=== PATIENT | female | born 1960 | race Caucasian/White ===

== ENCOUNTER 2020-06-03 11:49 | Emergency (ER) | payer SELFPAY ==
--- NOTE | 2020-06-03 13:31 | PC.NURSE ---
pt lwt at 1131, states that she did not want to wait any longer.
== END 2020-06-03 14:02 | disposition left against medical advice (07) ==
PROVIDERS: Emergency Provider Emergency Medicine; PCP Internal Medicine
DX: H57.13 Ocular pain, bilateral (principal)
CPT/HCPCS: 99281

== ENCOUNTER 2020-07-01 11:08 | Outpatient (REF) | payer BC, SELFPAY ==
[2020-07-01 12:27] LABS: Anion Gap 13 (12-20); Blood Urea Nitrogen 18 mg/dL (9-16); Carbon Dioxide 29 mmol/L (22-29); Chloride 103 mmol/L (96-108); Estimated Glomerular Filt Rate > 60; Glucose Random 92 mg/dL (60-115); Sodium 140 mmol/L (135-145)
== END 2020-07-01 11:09 | disposition home or self-care (01) ==
LOC: HO.LAB 11:08
PROVIDERS: PCP Internal Medicine; Visit Provider Physical Medicine & Rehabilitation
DX: Z01.812 Encounter for preprocedural laboratory examination (principal)
CPT/HCPCS: 80048

== ENCOUNTER 2020-07-12 08:47 | Outpatient (REF) | payer BC, SELFPAY ==
--- NOTE | 2020-07-12 08:50 | CT_ITS ---
EXAMINATION: CT PELVIS WITHOUT CONTRAST CT HIP WITHOUT CONTRAST, RIGHT CLINICAL INFORMATION: Sacroiliitis. COMPARISON: CT scan of the abdomen and pelvis November 2013 TECHNIQUE: CT scan of the pelvis was performed with reconstruction imaging performed at the acquisition workstation. CT scan of the right hip was performed with reconstruction imaging performed at the acquisition workstation. FINDINGS: Postsurgical changes related to right sacroiliac joint fusion. Two screw-shaped metallic implants pass through the sacroiliac joint both of which appear to contain bone graft continuously through the central portion of the implant. The sacroiliac joint otherwise appears lucent without additional areas of osseous bridging or osseous density within the joint. There is some gas within the articular portion of the sacroiliac joint which may reflect a vacuum phenomenon. There are no erosions. There is no joint space narrowing or marginal osteophytes. LEFT SACROILIAC JOINT: A smaller amount of gas present within the articular portion of the joint. No joint space narrowing or marginal osteophytes to suggest osteoarthritis. RIGHT HIP: See below. LEFT HIP: Normal. SYMPHYSIS PUBIS: Mild degenerative changes. In the partially visualized lumbosacral spine, there is advanced degenerative disc changes at L5-S1 with disc space narrowing, endplate osteophytes and gas within the disc space compatible with a vacuum disc phenomenon. This is unchanged compared to 2014. There is also advanced left facet arthrosis at L4-L5 likely at least slightly progressed compared to prior. MISCELLANEOUS: Calcific atherosclerotic changes of the distal aorta and branches, unchanged. Intrapelvic soft tissue structures are unremarkable. Fat-containing umbilical hernia measuring approximately 1.5 cm transverse, unchanged. RIGHT HIP: Femoroacetabular joint space is normal without degenerative change. Surrounding bone and soft tissues unremarkable other than calcific atherosclerotic disease CT/CT pelvis wo con IMPRESSION: Imaging of the pelvis and right hip performed. Postsurgical changes related to orthopedic fusion procedure of the right sacroiliac joint. Although there does appear to be bone graft extending along the metallic implant, no osseous bridging along other areas of the right sacroiliac joint. The joint otherwise appears unremarkable. Left sacroiliac joint within normal limits. RIGHT HIP: Normal. Incidental note made of spondylosis of the partially visualized lumbosacral spine perhaps slightly progressed compared with 2014 with regard to the left L4-L5 facet.
== END 2020-07-12 08:48 | disposition home or self-care (01) ==
LOC: HO.CT 08:47
PROVIDERS: PCP Internal Medicine; Visit Provider Physical Medicine & Rehabilitation
DX: M46.1 Sacroiliitis, not elsewhere classified (principal)
CPT/HCPCS: 72192; 73700

== ENCOUNTER 2021-10-31 23:17 | Emergency (ER) | payer BC, SELFPAY ==
--- NOTE | ~2021-10-31 | XR_ITS ---
EXAMINATION: XR HAND, RIGHT CLINICAL INFORMATION: Foreign body, multiple splinters COMPARISON: None TECHNIQUE: PA, lateral, and oblique views of the right hand. FINDINGS: Osseous alignment is anatomic. No acute fracture is seen. No radiopaque foreign body identified. XR/XR hand RT min 3V IMPRESSION: No radiopaque foreign body identified.
[2021-10-31 23:37] VITALS: BP 159/98; PULSE 78; RESP 17; TEMP 36.8; O2SAT 98; BMI 32.9
--- NOTE | 2021-11-01 01:42 | ED_ITS ---
HPI - General Adult General Chief complaint: Extremity Problem Stated complaint: splinter stuck in hand, infection ? Time Seen by Provider: 11/01/21 01:17 Source: patient Mode of arrival: ambulatory Limitations: no limitations History of Present Illness HPI narrative: This is a 61-year-old female no significant medical history presenting to the emergency department with complaints of foreign body sensation to right hand between the 1st and 2nd digit X5 days. Patient tells me she was holding a banister with wood and she got splinter stuck in her hands. She tells me she removed a 2.5 inch piece of wood however she still feels like there is would in there. She has concern for infection. She denies numbness or tingling, fevers, chills. She does tell me she feels as though her hand is getting puffy, and painful to move. She is right-hand dominant. She tells me she has been trying to remove this herself by pushing it through. Onset (ago): day(s) (5) Location: right and upper extremity Radiation: non-radiation Severity: moderate Quality: constant Pain Consistency: constant Relieving factors: none Exacerbating factors: none Associated symptoms: denies other symptoms Related Data Previous Rx's Medication Instructions Recorded cephalexin 500 mg tablet 500 mg PO Q6H 10 Days #40 tab 11/01/21 doxycycline hyclate 100 mg capsule 100 mg PO BID 10 Days #20 cap 11/01/21 oxycodone 5 mg tablet 5 mg PO Q8H PRN #8 tab 11/01/21 Allergies Allergy/AdvReac Type Severity Reaction Status Date / Time Uoxzfvm-JGL-DgP Reductase Allergy Unknown UNKNOWN Verified 10/31/21 23:42 Inhibitor [HFDNLGJ-DGI-UUJ REDUCTASE INHIBITOR] From SEROQUEL Allergy Unknown DIZZINESS Uncoded 10/31/21 23:42 Review of Systems Review of Systems: Constitutional : No Weight loss, No Fever, No Chills, No Fatigue, No Malaise ENT/Mouth : No sore throat, No Rhinorrhea Eyes: No Eye Pain, No Swelling, No Redness Cardiovascular : No Chest Pain, No SOB, No Dyspnea on Exertion, No Orthopnea, No Edema, No Palpitations Respiratory : No Cough, No Sputum, No Wheezing Gastrointestinal : No Nausea, No Vomiting, No Diarrhea, No Constipation, No abdominal Pain, No Hematochezia, No Melena Genitourinary : No Dysuria, No Urinary Frequency, No Hematuria, Musculoskeletal : No joint pain, No Myalgias, No Joint Swelling Skin : No Skin Lesions, No rash Neuro : No Weakness, No Numbness, No Dizziness, No Headache Psych : No Anxiety/Panic, No Depression All other systems reviewed and are negative Yes all other systems are reviewed and are negative [facility] Past Medical History Attestation statement: The following information was validated with the patient. Source: old records reviewed and nursing notes reviewed Social History Social History Advance Directives: No Advance Directives Information Provided: Yes Physical Exam ED Vital Signs: Vital Signs - 24 hr 10/31/21 23:37 Temperature 98.3 F Pulse Rate 78 Respiratory Rate 17 Blood Pressure 159/98 H Pulse Oximetry 98 BMI result Body Mass Index 32.9 Vital signs stable. Appearance: Alert.? Oriented X3.? No acute distress.? Head: Normocephalic, atraumatic, no step-offs or deformities Eyes: Pupils equal, round and reactive to light.? ENT: Pharynx normal.? Neck: Normal inspection.? Neck supple.? CVS: Normal heart rate and rhythm.? Pulses normal.? Respiratory: No respiratory distress.? Breath sounds normal.? Abdomen: Soft and nontender.? Skin: Skin warm and dry.? Normal skin color.? Normal skin turgor.? Extremities: No lower extremity edema.? No calf ttp. 5/5 strength to bilateral upper and lower extremities + able to palpate a foreign body between the 2nd and 1st digits of the right hand and below the webspaces feels like a 2 cm long linear object appears superficial, with faint ecchymosis overlying it.. Right hand/digits appear swollen when compared to the left hand. No evident, erythema to hand itself. Bilateral extremities with 2+ pulses equal bilateral. Capillary refill to bilateral upper extremities/digits less than 2 seconds. Sensory and motor intact. No pain w/ ROM of wrist b/l. Back: No midline tenderness, no C-spine tenderness, full range of motion, no CVA tenderness bilaterally Neuro: Oriented X 3.? No motor deficit.? No sensory deficit. CN 2-12 intact Course Reevaluation(s) Reevaluation #1: X-ray with no evidence of foreign bodies however the foreign body is wood. Attempted to make a small incision (1cm) and remove it with tweezers. Initially it felt as though I felt the foreign body however afterwards it feels as though the foreign body moved deeper, only a small sliver of wood removed. Due to the area of the foreign body I will no longer attempt to remove it. Due to the depth of it is likely that this needs to be done by surgeon. Patient has intact sensory and motor, capillary refill and neurovascularly intact even after removal of foreign body. Called to the bedside to evaluate the patient. Who agrees this should be surgical. She recommends place patient in a volar splint. I will give patient information for surgery I will have her call on Wednesday morning. If she is unable to get in I will advise her to return to the emergency department. She will also be started on oral antibiotics. Time: 02:44 Reevaluation #2: One suture 5-0 was placed on the palm of the hand. Educated her that this sutures non dissolvable and should be removed in 7 days. Time: 03:00 Medical Decision Making [facility] Narrative Medical decision making narrative: 0117 61 yo female presents w/ foreign body (wood) in right hand. She reports some swelling and bruising. FB appeaers to be just under skin, appears to be linear. Upon physical exam able to palpate a foreign body between the 2nd and 1st digits of the right hand and below the webspaces feels like a 2 cm long linear object appears superficial, with faint ecchymosis overlying it.. Right hand/digits appear swollen when compared to the left hand. No evident, erythema to hand itself. Bilateral extremities with 2+ pulses equal bilateral. Capillary refill to bilateral upper extremities/digits less than 2 seconds. Sensory and motor intact. No pain w/ ROM of wrist b/l. Plan at this time is x-ray of right hand. Although foreign body may not be visualized as foreign body is wood. Medical Records Medical records reviewed: Yes I reviewed the patient's medical records. Lab Data Lab results reviewed: Yes I reviewed the patient's lab results. Critical Care Time Critical Care Time Critical Care Time: No Discharge Plan Discharge Clinical Impression: Foreign body (FB) in soft tissue Patient Disposition: Home, Self-Care Instructions: Soft Tissue Foreign Body (ED) Additional Instructions: Take your medications as prescribed. If you were prescribed antibiotics today, it is important that you take your medication to their entirety, do not skip any doses, do not finish them early. Follow-up with your primary care provider this week. Follow-up with hand surge on/general surgery first thing Wednesday morning. Or return to the emergency department on Wednesday. Return to the emergency department with new or worsening symptoms. Such as fevers, chills, chest pain, shortness of breath, nausea, vomiting, dizziness, headache, vision changes, lethargy In case of emergency call [address] to your right palm, this should be removed in 7 days. Prescriptions: New doxycycline hyclate 100 mg capsule 100 mg PO BID 10 Days Qty: 20 0RF cephalexin 500 mg tablet 500 mg PO Q6H 10 Days Qty: 40 0RF oxycodone 5 mg tablet 5 mg PO Q8H PRN (Reason: pain) Qty: 8 0RF Rx Instructions: Patient can partially filled prescription upon request. Referrals: Michael Jha MD [Primary Care Provider] - Valerio Villalobos MD [Physician] - 2 days Elvia Jenkins MD [Physician] - 2 days Stand Alone Forms: Work/School Release
[2021-11-01] MEDS: Lidocaine HCl 2 % MPF 5 ML VIAL SUBCUT ×2 (02:07→02:08)
[2021-11-01] MEDS: Diphth,Pertus(ACell),Tet Adult 0.5 ML SYRINGE IM (02:07)
--- NOTE | 2021-11-01 02:22 | PC.NURSE ---
PA at bedside lancing wound to retrieve FB. Pt medicated per SEP.
[2021-11-01] MEDS: cephALEXin 500 MG CAPSULE PO (03:31)
== END 2021-11-01 03:33 | disposition home or self-care (01) ==
PROVIDERS: Emergency Provider Emergency Medicine; PCP Internal Medicine
DX: M79.5 Residual foreign body in soft tissue (principal); M79.641 Pain in right hand
CPT/HCPCS: 20520; 29125; 73130; 90471; 90715; 99283; 99284

== ENCOUNTER → 2021-11-04 08:05 | Outpatient (BNVA) | payer BC, SELFPAY | PROVIDERS: PCP Internal Medicine; Visit Provider Physician Assistant | DX: Z13.89 Encounter for screening for other disorder (principal) ==

== ENCOUNTER 2021-11-06 12:29 | Day surgery (SDC) | payer BC, SELFPAY ==
[2021-11-06] VITALS (8 sets, daily range): BP systolic 118–139; BP diastolic 62–81; PULSE 71–83; RESP 16–18; TEMP 36.1–36.6; O2SAT 94–100; BMI 30.9
--- NOTE | 2021-11-06 12:40 | P.OP_ITS ---
Operative Note Operative Note Date of Service: 11/06/21 Narrative: Operative Note Narrative: Preop diagnosis: 1. Right hand foreign body Postop diagnosis: 1. Right hand wound, no foreign body found Procedure: 1. Right hand wound exploration and I and D Surgeon: Elvia Jenkins MD Anesthesia: General [plus regional block] Findings: No foreign body found. No evidence of infection. Implants: None Tourniquet time: 13 minutes EBL: 5.0 ml Specimen: None Drains: None Complications: None Disposition: Brought to the recovery room in stable condition Plan: Continue antibiotics. Follow-up in 7-10 days for wound check, suture removal Indications: The patient is a 61 year old woman with history of a a right hand wooden splinter in the palmar thenar aspect of her hand . . The risks and benefits of operative treatment, including but not limited to risk of damage to blood vessels, nerves, tendons, infection, recurrence, persistent pain or numbness, incomplete resolution of preoperative symptoms, or need for further surgery were discussed with the patient and they wished to proceed with surgery. She was met in preop hold and showed me where she felt the foreign body was in her hand, which was on the volar aspect of the 1st webspace. I sonia a line with anchor over where she felt the foreign body was. Procedure: Once consent was obtained patient was brought back to the operating suite and placed in the operating table in a supine position. . Perioperative antibiotics and anesthesia was administered by the anesthesia team. A tourniquet was applied to the proximal aspect of the right upper extremity and the limb was prepped and draped in a standard surgical fashion. The limb was elevated exsanguinated with Esmarch bandage and the tourniquet inflated to 250 mm of mercury for a total tourniquet time of 13 minutes. I made a gently curved incision in the volar aspect of her right 1st web space using a 15. Blade through the skin to the subcutaneous tissues. The incision measured approximately 2 cm in length. I then carefully dissected through the subcutaneous fat, looking for a possible foreign body. We got down to the fascial layer and I observed the neurovascular bundle extending to the radial aspect of the index finger and also the neurovascular bundle extending up towards the thumb. These were protected during the case. They did not appear to be any violation of the fascial layer. I gently explore the subcutaneous fat and also palpated in the subcutaneous fat on both sides of the in incision. I also palpated the muscle belly. I felt no evidence of foreign body. I saw no evidence of foreign body. There was also no evidence of infection. At this point the tourniquet was deflated and hemostasis obtained with a brief period of local pressure . The wound was copiously irrigated with normal salin e. The skin edges were reapproximated with 5-0 nylon suture. The wound was infiltrated with some 1% lidocaine with epinephrine for postop pain control and a sterile dressing was applied. The patient appears to have tolerated the procedure well and with no complications. All digits were well vascularized conclusion of the case.
--- NOTE | 2021-11-06 12:50 | HO.ANESPROP2 ---
[facility] Surgical History Surgical History Hx of hysterectomy S/P insertion of spinal cord stimulator History of Problems with Anesthesia: Yes (History of difficult intubation per pt) Social History Social History (Updated 11/06/21 @ 13:02 by Vanita Brooks MD) Use of substances other than those prescribed or required for medical reasons: Yes Substance Use Type: Marijuana Substance Use Frequency: Daily Advance Directives: No Advance Directives Information Provided: Yes Current occupational status: unemployed Meds Allergies Allergy/AdvReac Type Severity Reaction Status Date / Time Ojsenrz-WCM-PgY Reductase Allergy Unknown UNKNOWN Verified 10/31/21 23:42 Inhibitor [PFUCPDF-WJL-NXQ REDUCTASE INHIBITOR] From SEROQUEL Allergy Unknown DIZZINESS Uncoded 10/31/21 23:42 Home Medications Medication Instructions Recorded Confirmed Last Taken Type bupropion HCl 150 mg 24 hr tablet, 150 mg PO QAM 11/04/21 11/06/21 History extended release clonazepam 0.5 mg tablet 0.5 mg PO DAILY 11/04/21 Unknown History duloxetine 60 mg capsule,delayed 60 mg PO DAILY 11/04/21 11/06/21 History release (Cymbalta) ezetimibe 10 mg tablet (Zetia) 10 mg PO DAILY 11/04/21 11/06/21 History Exam Exam Date and Time: November 06, 2021 1250 Airway Mallampati Class: II TM Dist: >3cm Neck ROM: Full Loose/Missing/Broken Teeth: No Heart: RRR Lungs: CTA Assessment and Plan Assessment Anesthesia Assessment: Anesthesia Plan Discussed and Chart Reviewed Final Anesthetic Review History of Problems with Anesthesia: Yes (History of difficult intubation per pt) NPO: Yes ASA Class: II Patient Risk: Low Procedure Risk: Low Anesthetic Plan Anesthetic Plan: GA Disposition: Standard PACU
[2021-11-06] MEDS: Lactated Ringers 1,000 ML 50 ML IVCONT (13:08)
[2021-11-06] MEDS: Acetaminophen 325 MG TABLET 650 MG PO (14:55)
[2021-11-06] MEDS: oxyCODONE HCl Immed Release 5 MG TABLET PO (14:56)
[2021-11-06] MEDS: Ketorolac Tromethamine 15 MG/ML VIAL IVPUSH (14:57)
== END 2021-11-06 15:50 | disposition home or self-care (01) ==
PROVIDERS: PCP Internal Medicine; Visit Provider Orthopaedic Surgery
PROC: (CPT 10120; principal; 2021-11-06 13:00)
DX: M79.5 Residual foreign body in soft tissue (principal); M79.641 Pain in right hand
CPT/HCPCS: 10120; J0171; J1100; J1885; J2405; J3010

== ENCOUNTER → 2021-11-12 08:08 | Outpatient (BNVA) | payer BC, SELFPAY | PROVIDERS: Visit Provider Orthopaedic Surgery | DX: Z13.89 Encounter for screening for other disorder (principal) ==

== ENCOUNTER → 2021-11-18 09:19 | Outpatient (BNVA) | payer BC, SELFPAY | PROVIDERS: Visit Provider Orthopaedic Surgery | DX: Z13.89 Encounter for screening for other disorder (principal) ==

== ENCOUNTER 2022-11-22 11:04 | Emergency (ER) | payer BC, SELFPAY ==
--- NOTE | ~2022-11-22 | CT_ITS ---
EXAMINATION: CT ORBIT WITH CONTRAST CLINICAL INFORMATION: Right eye pain. COMPARISON: Head CT from 04/16/2020. TECHNIQUE: Multidetector CT imaging examination of the orbits is performed with intravenous administration of 85 mL Omnipaque 350. Axial images and multiplanar reformatted images are reviewed. This CT examination was performed using dose optimization techniques as appropriate, variously including the following: *Automated exposure control *Adjustment of mA and/or kV according to patient size (this includes techniques or standardized protocols for targeted exams where dose is matched to indication/reason for exam; i.e. extremities or head) *Use of iterative reconstruction technique DLP: 197 mGy-cm FINDINGS: The globes and orbital desouza, including lamina papyracea, are intact. The orbital apex, optic canals, and retrobulbar fat planes are normal. The extraocular muscles are normal. No imaging evidence of preseptal or postseptal inflammation. Superior ophthalmic veins are unremarkable. No radiopaque foreign body in either orbit. No lesions are seen in the cavernous sinus. The maxilla, mandible and temporomandibular joints are intact. Nasal bones, pterygoid plates and zygomatic arches are normal. The paranasal sinuses are well-aerated and the ostiomeatal units are patent. No air-fluid levels in the paranasal sinuses. The visualized soft tissues of the face are normal. No soft tissue abscess. The visualized portions of the parotid glands are normal. The partially visualized intracranial structures are normal. CT/CT orbit BI w IV con IMPRESSION: No acute orbital or periorbital pathology. No evidence of a preseptal or postseptal inflammatory process, soft tissue mass or paranasal sinus disease.
[2022-11-22 11:27] VITALS: BP 122/74; PULSE 91; RESP 18; TEMP 36.8; O2SAT 100; BMI 29.2
--- NOTE | 2022-11-22 11:32 | ED_ITS ---
HPI - General Adult General Chief complaint: Eye Problems Stated complaint: R eye pain Time Seen by Provider: 11/22/22 12:45 Related Data Home Medications Medication Instructions Recorded Confirmed bupropion HCl 150 mg 24 hr tablet, 150 mg PO QAM 11/04/21 extended release clonazepam 0.5 mg tablet 0.5 mg PO DAILY 11/04/21 duloxetine 60 mg capsule,delayed 60 mg PO DAILY 11/04/21 release (Cymbalta) ezetimibe 10 mg tablet (Zetia) 10 mg PO DAILY 11/04/21 Previous Rx's Medication Instructions Recorded cephalexin 500 mg tablet 500 mg PO Q6H 10 days #40 tabs 11/01/21 doxycycline hyclate 100 mg capsule 100 mg PO BID 10 days #20 caps 11/01/21 oxycodone 5 mg tablet 5 mg PO Q8H PRN pain #8 tabs 11/01/21 hydrocodone 5 mg-acetaminophen 325 1 tab PO Q4-6H PRN pain #7 tabs 11/06/21 mg tablet amoxicillin 875 mg-potassium 1 tab PO BID #14 tabs 11/22/22 clavulanate 125 mg tablet Allergies Allergy/AdvReac Type Severity Reaction Status Date / Time Txyvxxz-OJG-BkM Reductase Allergy Unknown UNKNOWN Verified 11/22/22 11:26 Inhibitor [SUVEQSZ-TPB-PFX REDUCTASE INHIBITOR] From SEROQUEL Allergy Unknown DIZZINESS Uncoded 11/12/21 08:19 [facility] Past Medical History Surgical History Hx of hysterectomy S/P insertion of spinal cord stimulator Social History Social History Patient Tobacco Use Status: Former Tobacco user Quit Date: 2006 Substance Use Type: Marijuana Advance Directives: No Advance Directives Information Provided: Yes Current occupational status: unemployed Physical Exam ED Vital Signs: Vital Signs - 24 hr 11/22/22 11:27 Temperature 98.3 F Pulse Rate 91 Respiratory Rate 18 Blood Pressure 122/74 Pulse Oximetry 100 Oxygen Delivery Method Room Air BMI result Body Mass Index 29.2 Course Course Course Narrative: RME: 62 yold female presents to the for right eye pain tingling and right facial tingling for the past 3 weeks. patient has no neuro deficits or new trauma. patient has been sen by two eye doctors in the past three weeks who can not explain symptoms. Patient came to the ED for evlauation. Medications Administered Discontinued Medications Generic Name Dose Route Start Last Admin Trade Name Katiana PRN Reason Stop Dose Admin Fluorescein Sodium 1 strip 11/22/22 13:00 11/22/22 15:11 Fluorescein Sodium Strip EYE-RIGHT 11/22/22 13:01 1 strip ONCE ONE Administration Iohexol 100 ml 11/22/22 15:26 11/22/22 15:26 Iohexol 350 Mg/Ml 100 Ml Infus..Btl IV 11/22/22 15:27 85 ml ONCE ONE Administration Ketorolac Tromethamine 30 mg 11/22/22 15:13 11/22/22 15:44 Ketorolac Tromethamine 30 Mg/Ml Vial IVPUSH 11/22/22 15:14 30 mg ONCE ONE Administration Tetracaine HCl 1 drop 11/22/22 13:00 11/22/22 15:11 Tetracaine Hcl/Pf 0.5% Oph Fátima 4 Ml Drops EYE-RIGHT 11/22/22 13:01 1 drop ONCE ONE Administration Medical Decision Making Lab Data 11/22/22 14:39 11/22/22 14:39 Labs: Lab Results 11/22/22 11/22/22 11/22/22 Range/Units 14:39 14:39 14:41 WBC 8.9 (4.8-10.8) X10*3/uL RBC 4.75 (4.20-5.50) X10*6/uL Hgb 14.5 (12.0-16.0) g/dl Hct 41.2 (37.0-47.0) % MCV 86.7 (80.0-98.0) fL MCH 30.5 (27.0-33.0) pg MCHC 35.2 H (31.0-35.0) g/dl RDW 13.5 (11.0-16.0) % Plt Count 306 (160-400) X10*3/uL MPV 9.4 (9.4-12.3) fL Immature Gran % (Auto) 0.7 H (0.0-0.4) % Neut % (Auto) 51.4 (45-73) % Lymph % (Auto) 36.8 (20-40) % Mcduffie % (Auto) 6.5 (2-11) % Eos % (Auto) 3.4 (0-4) % Baso % (Auto) 1.2 (0-2) % Lymph # (Auto) 3.3 (1.2-4.9) X10*3/uL Mcduffie # (Auto) 0.6 (0.1-1.2) X10*3/uL Eos # (Auto) 0.3 (0.0-0.4) X10*3/uL Baso # (Auto) 0.1 (0.0-0.2) X10*3/uL Abs Immat Gran (auto) 0.06 H (0.00-0.03) X10*3/uL Absolute Neuts (auto) 4.6 (2.0-8.3) x10*3/uL Absolute Nucleated RBC 0.000 (0.0-0.012) X10*3/uL Nucleated RBC % (auto) 0.0 (0.0-0.2) /100WBC ESR 7 (0-20) MM/HR Sodium 145 (135-145) mmol/L Potassium 3.9 (3.3-5.1) mmol/L Chloride 107 (96-108) mmol/L Carbon Dioxide 27 (22-29) mmol/L Anion Gap 15 (12-20) BUN 16 (9-16) mg/dL Creatinine 0.81 (0.5-1.4) mg/dL Estim Creat Clear Calc 72.3 Estimated GFR > 60 Random Glucose 106 (60-115) mg/dL Calcium 9.8 (8.4-10.2) mg/dL Magnesium 2.1 (1.6-2.6) mg/dL Total Bilirubin 0.5 (0.0-1.0) mg/dL Direct Bilirubin 0.1 (0.0-0.5) mg/dL AST 23 (5-31) U/L ALT 27 (0-31) U/L Alkaline Phosphatase 108 (39-117) U/L C-Reactive Protein 0.17 (< or = 0.50) mg/dL Total Protein 6.6 (6.5-8.0) g/dL Albumin 4.1 (3.5-5.0) g/dL Discharge Plan Discharge Clinical Impression: Acute eye pain Patient Disposition: Home, Self-Care Instructions: Eye Pain (ED) Additional Instructions: Please take full course of antibiotic as directed per [facility]'s recommendation It is unclear what is causing your eye pain but your workup today was unremarkable. Please follow-up with the [facility]. If any new or worsening symptoms occur please return for re-evaluation. Prescriptions: New amoxicillin-pot clavulanate 875-125 mg tablet 1 tab PO BID Qty: 14 0RF No Action doxycycline hyclate 100 mg capsule 100 mg PO BID 10 Days Qty: 20 0RF cephalexin 500 mg tablet 500 mg PO Q6H 10 Days Qty: 40 0RF oxycodone 5 mg tablet 5 mg PO Q8H PRN (Reason: pain) Qty: 8 0RF Rx Instructions: Patient can partially filled prescription upon request. hydrocodone-acetaminophen 5-325 mg tablet 1 tab PO Q4-6H PRN (Reason: pain) Qty: 7 0RF clonazepam 0.5 mg tablet 0.5 mg PO DAILY duloxetine [Cymbalta] 60 mg capsule,delayed release(DR/EC) 60 mg PO DAILY bupropion HCl 150 mg tablet extended release 24 hr 150 mg PO QAM ezetimibe [Zetia] 10 mg tablet 10 mg PO DAILY Interventions: ED Discharge Assessment Last Done: 11/22/22 17:37 Discharge Date/Time: 11/22/22 17:38
[2022-11-22 14:49] LABS: Basophils Absolute Auto 0.1 X10*3/uL (0.0-0.2); Basophils Percent Auto 1.2 % (0-2); Eosinophils Absolute Auto 0.3 X10*3/uL (0.0-0.4); Eosinophils Percent Auto 3.4 % (0-4); Hematocrit 41.2 % (37.0-47.0); Hemoglobin 14.5 g/dl (12.0-16.0); Imm Gran Abs Auto 0.06 X10*3/uL (0.00-0.03); Imm Gran Pct Auto 0.7 % (0.0-0.4); Lymphocytes Absolute Auto 3.3 X10*3/uL (1.2-4.9); Lymphocytes Percent Auto 36.8 % (20-40); Mean Corpuscular HGB Conc 35.2 g/dl (31.0-35.0); Mean Corpuscular Hemoglobin 30.5 pg (27.0-33.0); Mean Corpuscular Volume 86.7 fL (80.0-98.0); Mean Platelet Volume 9.4 fL (9.4-12.3); Monocytes Absolute Auto 0.6 X10*3/uL (0.1-1.2); Monocytes Percent Auto 6.5 % (2-11); Neutrophils Absolute Auto 4.6 x10*3/uL (2.0-8.3); Neutrophils Percent Auto 51.4 % (45-73); Platelet Count 306 X10*3/uL (160-400); Red Blood Count 4.75 X10*6/uL (4.20-5.50); Red Cell Distribution Width 13.5 % (11.0-16.0); White Blood Count 8.9 X10*3/uL (4.8-10.8)
[2022-11-22 14:58] LABS: Alanine Aminotransferase 27 U/L (0-31); Albumin Level 4.1 g/dL (3.5-5.0); Alkaline Phosphatase 108 U/L (39-117); Anion Gap 15 (12-20); Aspartate Amino Transferase 23 U/L (5-31); Bilirubin Direct 0.1 mg/dL (0.0-0.5); Bilirubin Total 0.5 mg/dL (0.0-1.0); Blood Urea Nitrogen 16 mg/dL (9-16); C Reactive Protein 0.17 mg/dL (< or = 0.50); Calcium 9.8 mg/dL (8.4-10.2); Carbon Dioxide 27 mmol/L (22-29); Chloride 107 mmol/L (96-108); Creatinine Clr Calc Pharmacy 72.3; Estimated Glomerular Filt Rate > 60; Glucose Random 106 mg/dL (60-115); Magnesium 2.1 mg/dL (1.6-2.6); Potassium 3.9 mmol/L (3.3-5.1); Sodium 145 mmol/L (135-145); Total Protein 6.6 g/dL (6.5-8.0)
[2022-11-22] MEDS: Tetracaine HCl/PF 0.5% Oph Sol 4 ML DROPS 1 DROP EYE-RIGHT (15:11)
[2022-11-22] MEDS: Fluorescein Sodium STRIP 1 STRIP EYE-RIGHT (15:11)
--- NOTE | 2022-11-22 15:17 | ED.EYEPROB ---
HPI - Eye Problem General Chief complaint: Eye Problems Stated complaint: R eye pain Time Seen by Provider: 11/22/22 12:45 Source: patient and RN notes reviewed Mode of arrival: ambulatory Limitations: no limitations History of Present Illness HPI Narrative: This is a [id number], with a past medical history of depression, who presents to the emergency department with complaints of right eye pain x 2 weeks. Patient states that her right eye feels like she has pins and needles in her right eye. Initially her symptoms were on and off, but know her symptoms are more constant. She has also had blurred vision. She states that she has had stabbing pain that starts in the right eye and radiates into her posterior head. She denies any trauma or injury to her right eye. She states that she was seen by two eye doctors who are unable to determine what is causing her symptoms, she most recently seen on 11/20/2022 by the [facility] [place], who recommended her to immediately go to the emergency department for imaging but states that she did not feel like going at that time and is here today for the obital CT they recommended. She was also seen by Dr. Hogan, per notes and was prescribed an ointment and drops , which did not alleviate her symptoms. Denies any fevers or chills. She states that her symptoms worsen with leaning forward. Denies any shortness of breath, nausea, vomiting or diarrhea. Denies taking any medications at home to treat her symptoms. No other complaints or concerns at this time. chief complaint: eye pain Onset (ago): week(s) Onset description: sudden Duration: progressively worsening Location: right eye Eye Symptoms: pain, blurry vision and photophobia Place: home Mechanism: none Severity: moderate Severity scale (1-10): 7 If Pain, Quality: aching Associated symptoms: none Treatments Prior to Arrival: none Related Data Home Medications Medication Instructions Recorded Confirmed bupropion HCl 150 mg 24 hr tablet, 150 mg PO QAM 11/04/21 extended release clonazepam 0.5 mg tablet 0.5 mg PO DAILY 11/04/21 duloxetine 60 mg capsule,delayed 60 mg PO DAILY 11/04/21 release (Cymbalta) ezetimibe 10 mg tablet (Zetia) 10 mg PO DAILY 11/04/21 Previous Rx's Medication Instructions Recorded cephalexin 500 mg tablet 500 mg PO Q6H 10 days #40 tabs 11/01/21 doxycycline hyclate 100 mg capsule 100 mg PO BID 10 days #20 caps 11/01/21 oxycodone 5 mg tablet 5 mg PO Q8H PRN pain #8 tabs 11/01/21 hydrocodone 5 mg-acetaminophen 325 1 tab PO Q4-6H PRN pain #7 tabs 11/06/21 mg tablet amoxicillin 875 mg-potassium 1 tab PO BID #14 tabs 11/22/22 clavulanate 125 mg tablet Allergies Allergy/AdvReac Type Severity Reaction Status Date / Time [id number]-[id number]-[id number] Reductase Allergy Unknown UNKNOWN Verified 11/22/22 11:26 Inhibitor [[id number] REDUCTASE INHIBITOR] From SEROQUEL Allergy Unknown DIZZINESS Uncoded 11/12/21 08:19 Review of Systems Review of Systems: Constitutional: No Weight loss, No Fever, No Chills ENT/Mouth: +eye pain, No Ear Pain, No Nasal Congestion, No Sinus Pain, No Hoarseness, No sore throat, No Rhinorrhea, No Swallowing Difficulty Cardiovascular: No Chest Pain, No SOB Respiratory: No Cough, No Sputum, No Wheezing Gastrointestinal: No Nausea, No Vomiting, No Diarrhea, No Constipation, No Abdominal pain Genitourinary: No Dysuria, No Urinary Frequency, No Hematuria, No Urinary Incontinence/retention, No Urgency, No Flank Pain Musculoskeletal: No joint pain, No Myalgias, No Joint Swelling Skin: No Skin Lesions, No rash Neuro: No Weakness, No Numbness, No Paresthesias Yes all other systems are reviewed and are negative Constitutional: Constitutional: Reports as per [facility] Past Medical History Attestation statement: The following information was validated with the patient. Surgical History Hx of hysterectomy S/P insertion of spinal cord stimulator Social History Social History Patient Tobacco Use Status: Former Tobacco user Quit Date: 2006 Substance Use Type: Marijuana Advance Directives: No Advance Directives Information Provided: Yes Current occupational status: unemployed Physical Exam Vital Signs: Vital Signs: Last Vital Signs Temp 98.4 F 11/22/22 16:38 Pulse 82 11/22/22 16:38 Resp 14 11/22/22 16:38 BP 122/61 11/22/22 16:38 Pulse Ox 97 11/22/22 16:38 O2 Del Method Room Air 11/22/22 16:38 BMI result Body Mass Index 29.2 Const: General: cooperative, comfortable and no acute distress Orientation/consciousness: patient oriented x3 Limitations: no limitations HEENT: Head: Yes normal to inspection, Yes normocephalic and Yes atraumatic Ears: hearing grossly normal bilaterally General nose exam: Normal external nose present Face and sinus: Yes normal facial exam Mouth: Normal oral and palatal mucosa present, oropharynx normal and moist mucous membranes Throat: Yes posterior oropharynx normal Eyes: Other: Pupils equal, dilated, reactive but sluggish;Pt reports pain with EOM in right eye. all EOMI General: appearance normal, both eyes and all related structures Eyelids: Yes eyelids normal and Yes other (TTP over the right upper eyelid, no eyelid edema) Conjunctivae: conjunctivae normal Sclerae: sclerae normal Corneas: fluorescein used (Right eye: No uptake, no corneal abrasions or lesions, no FB noted) EOM: EOMs intact bilaterally Neck: Neck: Yes normal visual inspection, Yes full ROM and Yes no lymphadenopathy Lymphatic: no lymphadenopathy noted Chest: Chest palpation & inspection: normal inspection of the chest Resp: Effort & Inspection: normal respiratory effort and able to speak in complete sentences Auscultation: clear to auscultation bilaterally, no crackles, no rales, no rhonchi and no wheezes Cardio: Rate: regular rate Rhythm: regular rhythm Heart sounds: S1 normal heart sound present and S2 normal heart sound present GI: Inspection: Yes normal to inspection Skin: General skin exam: no rashes or lesions noted Trauma: no lacerations or abrasions Wounds: no wounds Neuro: General: patient oriented x3 and moves all extremities Extrem: General: Yes normal to inspection Right upper extremity: normal to inspection Left upper extremity: normal to inspection Right lower extremity: normal to inspection Left lower extremity: normal to inspection Medications Administered Discontinued Medications Generic Name Dose Route Start Last Admin Trade Name Freq PRN Reason Stop Dose Admin Fluorescein Sodium 1 strip 11/22/22 13:00 11/22/22 15:11 Fluorescein Sodium Strip EYE-RIGHT 11/22/22 13:01 1 strip ONCE ONE Administration Iohexol 100 ml 11/22/22 15:26 11/22/22 15:26 Iohexol 350 Mg/Ml 100 Ml Infus..Btl IV 11/22/22 15:27 85 ml ONCE ONE Administration Ketorolac Tromethamine 30 mg 11/22/22 15:13 11/22/22 15:44 Ketorolac Tromethamine 30 Mg/Ml Vial IVPUSH 11/22/22 15:14 30 mg ONCE ONE Administration Tetracaine HCl 1 drop 11/22/22 13:00 11/22/22 15:11 Tetracaine Hcl/Pf 0.5% Oph Fátima 4 Ml Drops EYE-RIGHT 11/22/22 13:01 1 drop ONCE ONE Administration Medical Decision Making Medical Decision Making MDM Narrative: 62-year-old female, the past medical history of CVA in 2003, who presents emergency department today with ongoing pins and needles that her right eye the last 2 weeks. Patient has been seen by 2 eye physicians, see below for further details. Fluorescein stain was no uptake no foreign body corneal abrasions ulcerations identified. Intra-ocular pressures, right eye 14, left eye in 24. This has improved since her outpatient eye doctor visit 2 days ago. Visual acuity 20/[address] orbits are unremarkable. Patient is very neurologically intact. It is unclear what is causing her symptoms but given recommendations per [facility] [place] with oral antibiotics with Augmentin. Discussed and urged the importance of following up with her eye doctor tomorrow as it is unclear what is causing her to have the symptoms. Discussed red flag warning signs of when to return. Patient medicated with Toradol reports some mild pain improvement, tetracaine eyedrops provided her with some relief. Patient understands this plan. Differential Diagnosis Differential Diagnoses: The differential diagnosis associated with the presentation includes Glaucoma, conjunctivitis, iritis, Mungu[place] own, migraine, complex migraine, ICH Admission/Observation Consideration of admission/observation: Escalation of care including admission/observation considered Lab Data [facility] Lab Attestation statement: I reviewed the patient's lab results. 11/22/22 14:39 11/22/22 14:39 Labs: Lab Results 11/22/22 11/22/22 11/22/22 Range/Units 14:39 14:39 14:41 WBC 8.9 (4.8-10.8) X10*3/uL RBC 4.75 (4.20-5.50) X10*6/uL Hgb 14.5 (12.0-16.0) g/dl Hct 41.2 (37.0-47.0) % MCV 86.7 (80.0-98.0) fL MCH 30.5 (27.0-33.0) pg MCHC 35.2 H (31.0-35.0) g/dl RDW 13.5 (11.0-16.0) % Plt Count 306 (160-400) X10*3/uL MPV 9.4 (9.4-12.3) fL Immature Gran % (Auto) 0.7 H (0.0-0.4) % Neut % (Auto) 51.4 (45-73) % Lymph % (Auto) 36.8 (20-40) % Gonzales % (Auto) 6.5 (2-11) % Eos % (Auto) 3.4 (0-4) % Baso % (Auto) 1.2 (0-2) % Lymph # (Auto) 3.3 (1.2-4.9) X10*3/uL Gonzales # (Auto) 0.6 (0.1-1.2) X10*3/uL Eos # (Auto) 0.3 (0.0-0.4) X10*3/uL Baso # (Auto) 0.1 (0.0-0.2) X10*3/uL Abs Immat Gran (auto) 0.06 H (0.00-0.03) X10*3/uL Absolute Neuts (auto) 4.6 (2.0-8.3) x10*3/uL Absolute Nucleated RBC 0.000 (0.0-0.012) X10*3/uL Nucleated RBC % (auto) 0.0 (0.0-0.2) /100WBC ESR 7 (0-20) MM/HR Sodium 145 (135-145) mmol/L Potassium 3.9 (3.3-5.1) mmol/L Chloride 107 (96-108) mmol/L Carbon Dioxide 27 (22-29) mmol/L Anion Gap 15 (12-20) BUN 16 (9-16) mg/dL Creatinine 0.81 (0.5-1.4) mg/dL Estim Creat Clear Calc 72.3 Estimated GFR > 60 Random Glucose 106 (60-115) mg/dL Calcium 9.8 (8.4-10.2) mg/dL Magnesium 2.1 (1.6-2.6) mg/dL Total Bilirubin 0.5 (0.0-1.0) mg/dL Direct Bilirubin 0.1 (0.0-0.5) mg/dL AST 23 (5-31) U/L ALT 27 (0-31) U/L Alkaline Phosphatase 108 (39-117) U/L C-Reactive Protein 0.17 (< or = 0.50) mg/dL Total Protein 6.6 (6.5-8.0) g/dL Albumin 4.1 (3.5-5.0) g/dL Radiology Impression Discussion of test interpretation with radiology: I have reviewed the radiologist's reading. Radiologist Impression: COMPARISON: Head CT from 04/16/2020.? ? TECHNIQUE: Multidetector CT imaging examination of the orbits is performed with intravenous administration of 85 mL Omnipaque 350. Axial images and multiplanar reformatted images are reviewed.? This CT examination was performed using dose optimization techniques as appropriate, variously including the following: *Automated exposure control *Adjustment of mA and/or kV according to patient size (this includes techniques or standardized protocols for targeted exams where dose is matched to indication/reason for exam; i.e. extremities or head) *Use of iterative reconstruction technique DLP: 197 mGy-cm FINDINGS: The globes and orbital desouza, including lamina papyracea, are intact. The orbital apex, optic canals, and retrobulbar fat planes are normal. The extraocular muscles are normal. No imaging evidence of preseptal or postseptal inflammation. Superior ophthalmic veins are unremarkable. No radiopaque foreign body in either orbit. No lesions are seen in the cavernous sinus. The maxilla, mandible and temporomandibular joints are intact. Nasal bones, pterygoid plates and zygomatic arches are normal. The paranasal sinuses are well-aerated and the ostiomeatal units are patent. No air-fluid levels in the paranasal sinuses. The visualized soft tissues of the face are normal. No soft tissue abscess. The visualized portions of the parotid glands are normal. The partially visualized intracranial structures are normal. CT/CT orbit BI w IV con IMPRESSION: No acute orbital or periorbital pathology. No evidence of a preseptal or postseptal inflammatory process, soft tissue mass or paranasal sinus disease. Dictated By: Eddie Martinez MD External Record Review External record reviewed: Inpatient record, Office record, Outpatient record, Prior outpatient labs, Prior outpatient radiology, Primary care record and Outside ED record Patient presents today with office note ([facility] 11/20/2022) from [facility] [place] patient seen by Dr. Eliazar Andrews. Patient was previously seen by Dr. Hogan per office no who started patient on an unknown eye ointment and eye drops in patient's symptoms do not improve. Patient was then seen by [facility] [place] in November 20, 2022 where they performed a visual acuity test an intra ocular pressure, right eye 25, left eye 30, examination rate a with 2+ eye lid edema, question of resistance right true lesion in pain with palpation. No other finding on his eye. Per no examination revealed edema of the eyelid in this pain has been present for the past several weeks without any improvement the eye appears normal. They recommended orbital imaging with CT orbits and if no pathology was identified would recommend oral antibiotics in case consideration of steroids for orbital inflammatory disease. Prescription Management I considered prescription management with: Antibiotic Recommendations given by [facility] [place]. Discharge Plan Discharge Clinical Impression: Acute eye pain Patient Disposition: Home, Self-Care Instructions: Eye Pain (ED) Additional Instructions: Please take full course of antibiotic as directed per [facility]'s recommendation It is unclear what is causing your eye pain but your workup today was unremarkable. Please follow-up with the [facility]. If any new or worsening symptoms occur please return for re-evaluation. Prescriptions: New amoxicillin-pot clavulanate 875-125 mg tablet 1 tab PO BID Qty: 14 0RF No Action doxycycline hyclate 100 mg capsule 100 mg PO BID 10 Days Qty: 20 0RF cephalexin 500 mg tablet 500 mg PO Q6H 10 Days Qty: 40 0RF oxycodone 5 mg tablet 5 mg PO Q8H PRN (Reason: pain) Qty: 8 0RF Rx Instructions: Patient can partially filled prescription upon request. hydrocodone-acetaminophen 5-325 mg tablet 1 tab PO Q4-6H PRN (Reason: pain) Qty: 7 0RF clonazepam 0.5 mg tablet 0.5 mg PO DAILY duloxetine [Cymbalta] 60 mg capsule,delayed release(DR/EC) 60 mg PO DAILY bupropion HCl 150 mg tablet extended release 24 hr 150 mg PO QAM ezetimibe [Zetia] 10 mg tablet 10 mg PO DAILY Interventions: ED Discharge Assessment Last Done: 11/22/22 17:37 Discharge Date/Time: 11/22/22 17:38
[2022-11-22] MEDS: iohexoL 350 MG/ML 100 ML INFUS..BTL IV (15:26)
[2022-11-22 15:34] LABS: Erythrocyte Sedimentation Rate 7 MM/HR (0-20)
[2022-11-22] MEDS: Ketorolac Tromethamine 30 MG/ML VIAL IVPUSH (15:44)
[2022-11-22 16:38] VITALS: BP 122/61; PULSE 82; RESP 14; TEMP 36.9; O2SAT 97
== END 2022-11-22 17:38 | disposition home or self-care (01) ==
PROVIDERS: Physician Assistant Medical; Emergency Provider Emergency Medicine; PCP Family Medicine
DX: H57.11 Ocular pain, right eye (principal); H53.141 Visual discomfort, right eye; H53.8 Other visual disturbances; Z79.899 Other long term (current) drug therapy; Z87.891 Personal history of nicotine dependence
CPT/HCPCS: 36415; 70481; 80048; 80076; 83735; 85025; 85652; 86140; 96374; 99283; 99284; J1885; Q9967